=== PATIENT | female | born 2005 | race Caucasian/White ===

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

== ENCOUNTER 2024-11-04 12:15 | Emergency (ER) | payer OTHER, SELFPAY ==
--- NOTE | ~2024-11-04 | US_ITS ---
EXAMINATION: US OBSTETRICAL ULTRASOUND CLINICAL INFORMATION: , pain and bleeding. COMPARISON: None available. LMP: 07/29/2024. Gestational age by maternal dates is 14 weeks, 0 days. Estimated date of delivery by maternal dates is 05/05/2025. TECHNIQUE: Ultrasound of the maternal pelvis is performed using transabdominal and transvaginal transducers. Transvaginal imaging is performed due to inadequate visualization transabdominally. M-mode Doppler is also performed. FINDINGS: HCG = 36,264 There is a single intrauterine gestational sac with visible yolk sac, embryo/fetus, and cardiac activity. There is positive motion. There is no significant subchorionic hemorrhage or hematoma. No myometrial abnormalities. Cervical length = 3.7 cm. Placenta is anterior. HR: 170 beats per minute. CRL (crown rump length): 7.19 cm (13 weeks, 3 days +/- 4 days). CAMILLE (estimated date of delivery): 05/09/2025, +/- 4 days. MATERNAL ADNEXA: The right maternal ovary measures 3.0 x 2.2 x 2.3 cm. Dominant follicular cyst measuring 1.7 x 1.9 x 2.0 cm. The left maternal ovary measures 2.9 x 2.8 x 3.2 cm. Dominant follicular cyst measuring 2.6 x 2.0 x 2.4 cm. There is no significant maternal adnexal mass. Trace free pelvic fluid is present, anechoic, nonspecific. US/US OB pelvic and transvaginal IMPRESSION: 1. Single viable intrauterine gestation with ultrasound gestational age of 18 weeks, 3 days, +/- 4 days. 2. Estimated date of delivery is 05/09/2025, +/- 4 days. 3. No maternal adnexal mass or pelvic ascites. 4. No gestational complication identified. Electronically signed by: Del Potter MD 11/04/2024 03:33 PM EDT
[2024-11-04 12:32] VITALS: BP 119/64; PULSE 101; RESP 18; TEMP 36.9; O2SAT 97; BMI 38.4
--- NOTE | 2024-11-04 12:32 | ED.GENADULT ---
HPI - General Adult General Chief complaint: OB Stated complaint: 14 weeks preg bleeding Time Seen by Provider: 11/04/24 14:26 Source: patient Mode of arrival: ambulatory Limitations: no limitations History of Present Illness ED Provider: Valente Fishman DO HPI narrative: 19 year old female is G2A1 with prior miscarriage 1 year ago who is [place]-speaking from [place] visiting her sister for the past 10 days and has had a positive at home presents to the ED for 2 days of mild left-sided abdominal pain without other symptoms including fevers, chills, nausea, vomiting, diarrhea, constipation, vaginal bleeding or abnormal vaginal discharge. Patient denies any trauma to the area. History obtained with the assistance of patient's sister at bedside as well as in-person blender machine operator, Ray. Related Data Allergies Allergy/AdvReac Type Severity Reaction Status Date / Time No Known Allergies Allergy Verified 11/04/24 12:34 [No Known Allergies*] Review of Systems Review of Systems: Yes all other systems are reviewed and are negative PMFSH Past Medical History Medical History Patient denies significant medical history Social History Social History Smoked in Last 30 Days: No Use of substances other than those prescribed or required for medical reasons: No Advance Directives: No Advance Directives Information Provided: No Patient : Yes Physical Exam ED Vital Signs: Vital Signs - 24 hr 11/04/24 12:32 11/04/24 15:18 Temperature 98.4 F 97.3 F Pulse Rate 101 H 105 H Respiratory Rate 18 14 Blood Pressure 119/64 140/86 H Pulse Oximetry 97 92 Oxygen Delivery Method Room Air Room Air BMI result Body Mass Index 38.4 Constitutional: ?Alert, oriented, speaking in full sentences HEENT: ?Normocephalic, atraumatic. ? Eyes: ?PERRL, EOMI Neck: ?Supple, nontender Chest: ?No chest wall tenderness Respiratory: ?Lungs clear to auscultation, no increased work of breathing Cardio: ?Regular rate and rhythm, no murmur GI: ?Soft, gravid, nontender Back: ?Normal range of motion, nontender Skin: ?No rash, no lesions Neuro: ?Alert and oriented to person, place and time, moves all 4 extremities, no focal deficits Extremities: ?No swelling or tenderness, full range of motion Psych: ?Calm, alert and cooperative, appropriate behavior Course Course Course Narrative: RME, this is a rapid medical exam performed by Brooks Azul please refer to primary provider for complete H&P- 19-year-old female presents for evaluation of lower abdominal pain and vaginal bleeding. The patient reports she was about 14 weeks . She was . Patient reports a previous miscarriage. She states that she had an ultrasound in [place] on October 22 which confirmed intrauterine gestation. Plan for labs, pelvic ultrasound Medications Administered Discontinued Medications Generic Name Dose Route Start Last Admin Trade Name Freq PRN Reason Stop Dose Admin Acetaminophen 975 mg 11/04/24 15:32 11/04/24 15:42 Acetaminophen 325 Mg Tablet PO 11/04/24 15:33 975 mg ONCE ONE Administration Medical Decision Making Medical Decision Making [facility] Narrative: Pleasant 19-year-old female presenting with left-sided abdominal pain in the setting of known . Unremarkable CBC, unremarkable metabolic panel, unremarkable lipase and liver function, beta hCG over 36,000, no urinary symptoms, and she is O positive. She has no focal tenderness concerning for intra-abdominal pathology such as appendicitis or cholecystitis. Ultrasound performed which showed a single viable intrauterine at approximately 18 weeks. No other complicating features if normal movement and heart rate. The patient has no vaginal bleeding and there was no concern for loss at this time. She is well-appearing, accepts offered acetaminophen for pain and we discuss clear return precautions and follow up with her gynecological assistant when she returns home to [place] in a few days. Patient and sister at bedside agree with plan. Lab Data 11/04/24 12:53 11/04/24 12:53 Labs: Lab Results 11/04/24 Range/Units 12:53 WBC 11.7 H (4.8-10.8) X10*3/uL RBC 4.06 L (4.20-5.50) X10*6/uL Hgb 12.5 (12.0-16.0) g/dl Hct 35.1 L (37.0-47.0) % MCV 86.5 (80.0-98.0) fL MCH 30.8 (27.0-33.0) pg MCHC 35.6 H (31.0-35.0) g/dl RDW 13.4 (11.0-16.0) % Plt Count 265 (160-400) X10*3/uL MPV 10.0 (9.4-12.3) fL Immature Gran % (Auto) 0.3 (0.0-0.4) % Neut % (Auto) 82.4 H (45-73) % Lymph % (Auto) 9.2 L (20-40) % [place] % (Auto) 6.3 (2-11) % Eos % (Auto) 1.5 (0-4) % Baso % (Auto) 0.3 (0-2) % Lymph # (Auto) 1.1 L (1.2-4.9) X10*3/uL [place] # (Auto) 0.7 (0.1-1.2) X10*3/uL Eos # (Auto) 0.2 (0.0-0.4) X10*3/uL Baso # (Auto) 0.0 (0.0-0.2) X10*3/uL Abs Immat Gran (auto) 0.03 (0.00-0.03) X10*3/uL Absolute Neuts (auto) 9.7 H (2.0-8.3) x10*3/uL Absolute Nucleated RBC 0.000 (0.0-0.012) X10*3/uL Nucleated RBC % (auto) 0.0 (0.0-0.2) /100WBC Sodium 135 (135-145) mmol/L Potassium 3.7 (3.3-5.1) mmol/L Chloride 108 (96-108) mmol/L Carbon Dioxide 21 L (22-29) mmol/L Anion Gap 10 L (12-20) BUN 7 L (9-16) mg/dL Creatinine 0.62 (0.5-1.4) mg/dL Estim Creat Clear Calc 161.8 Estimated GFR > 60 Random Glucose 90 (60-115) mg/dL Calcium 9.3 (8.4-10.2) mg/dL Total Bilirubin 0.5 (0.0-1.0) mg/dL AST 15 (5-31) U/L ALT 8 (0-31) U/L Alkaline Phosphatase 61 (39-117) U/L Total Protein 7.7 (6.5-8.0) g/dL Albumin 3.7 (3.5-5.0) g/dL Lipase 15 (8-78) U/L Beta HCG, Quant 65453 mIU/mL Blood Type O Positive Discharge Plan Discharge Clinical Impression: Intrauterine Patient Disposition: Home, Self-Care Instructions: at 15 to 18 Weeks (ED), at 19 to 22 Weeks (ED) Additional Instructions: Por favor, emile un seguimiento con hampton ginec?logo obstetra cuando regrese a [place] para las pruebas de rutina. [place] ultrasonido de hoy mostr? un embarazo a las 18 semanas y aproximadamente 3 d?as con de 05/09/2025. Por favor, vuelva a urgencias si tiene sangrado vaginal, flujo anormal, s?ntomas urinarios, fiebre, empeoramiento del dolor abdominal o cualquier otro cambio spring o preocupaci?n. Traducci?n realizada con la versi?n gratuita del [email or web address] [email or web address] FINDINGS: HCG = 36,264 There is a single intrauterine gestational sac with visible yolk sac, embryo/fetus, and cardiac activity. There is positive motion. There is no significant subchorionic hemorrhage or hematoma. No myometrial abnormalities. Cervical length = 3.7 cm. Placenta is anterior. HR: 170 beats per minute. CRL (crown rump length): 7.19 cm (13 weeks, 3 days +/- 4 days). CAMILLE (estimated date of delivery): 05/09/2025, +/- 4 days. MATERNAL ADNEXA: The right maternal ovary measures 3.0 x 2.2 x 2.3 cm. Dominant follicular cyst measuring 1.7 x 1.9 x 2.0 cm. The left maternal ovary measures 2.9 x 2.8 x 3.2 cm. Dominant follicular cyst measuring 2.6 x 2.0 x 2.4 cm. There is no significant maternal adnexal mass. Trace free pelvic fluid is present, anechoic, nonspecific. US/US OB pelvic and transvaginal IMPRESSION: 1. Single viable intrauterine gestation with ultrasound gestational age of 18 weeks, 3 days, +/- 4 days. 2. Estimated date of delivery is 05/09/2025, +/- 4 days. 3. No maternal adnexal mass or pelvic ascites. 4. No gestational complication identified. Electronically signed by: Del Potter MD 11/04/2024 03:33 PM EDT RP Print Language: Singaporean
[2024-11-04 12:58] LABS: MANUAL DIFF FLAG NO
[2024-11-04 13:04] LABS: Basophils Percent Auto 0.3 % (0-2); Eosinophils Absolute Auto 0.2 X10*3/uL (0.0-0.4); Eosinophils Percent Auto 1.5 % (0-4); Hematocrit 35.1 % (37.0-47.0); Hemoglobin 12.5 g/dl (12.0-16.0); Imm Gran Abs Auto 0.03 X10*3/uL (0.00-0.03); Imm Gran Pct Auto 0.3 % (0.0-0.4); Lymphocytes Absolute Auto 1.1 X10*3/uL (1.2-4.9); Lymphocytes Percent Auto 9.2 % (20-40); Mean Corpuscular HGB Conc 35.6 g/dl (31.0-35.0); Mean Corpuscular Hemoglobin 30.8 pg (27.0-33.0); Mean Corpuscular Volume 86.5 fL (80.0-98.0); Monocytes Absolute Auto 0.7 X10*3/uL (0.1-1.2); Monocytes Percent Auto 6.3 % (2-11); Neutrophils Absolute Auto 9.7 x10*3/uL (2.0-8.3); Neutrophils Percent Auto 82.4 % (45-73); Platelet Count 265 X10*3/uL (160-400); Red Blood Count 4.06 X10*6/uL (4.20-5.50); Red Cell Distribution Width 13.4 % (11.0-16.0); White Blood Count 11.7 X10*3/uL (4.8-10.8)
[2024-11-04 13:19] LABS: Alanine Aminotransferase 8 U/L (0-31); Albumin Level 3.7 g/dL (3.5-5.0); Alkaline Phosphatase 61 U/L (39-117); Anion Gap 10 (12-20); Aspartate Amino Transferase 15 U/L (5-31); Bilirubin Total 0.5 mg/dL (0.0-1.0); Blood Urea Nitrogen 7 mg/dL (9-16); Calcium 9.3 mg/dL (8.4-10.2); Carbon Dioxide 21 mmol/L (22-29); Chloride 108 mmol/L (96-108); Creatinine Clr Calc Pharmacy 161.8; Estimated Glomerular Filt Rate > 60; Glucose Random 90 mg/dL (60-115); Lipase 15 U/L (8-78); Potassium 3.7 mmol/L (3.3-5.1); Sodium 135 mmol/L (135-145); Total Protein 7.7 g/dL (6.5-8.0)
[2024-11-04 13:45] LABS: HCG Quantitative 36264 mIU/mL
--- NOTE | 2024-11-04 14:27 | PC.NURSE ---
pt currently at ultrasound
--- NOTE | 2024-11-04 15:05 | PC.NURSE ---
pt rerturned from ultrasound department
[2024-11-04 15:18] VITALS: BP 140/86; PULSE 105; RESP 14; TEMP 36.3; O2SAT 92
[2024-11-04] MEDS: Acetaminophen 325 MG TABLET 975 MG PO (15:42)
[2024-11-04 16:33] VITALS: BP 120/68; PULSE 98; RESP 16; TEMP 36.9; O2SAT 99
== END 2024-11-04 16:37 | disposition home or self-care (01) ==
PROVIDERS: Physician Assistant; Emergency Provider Emergency Medicine
DX: O20.9 Hemorrhage in early pregnancy, unspecified (principal); R10.2 Pelvic and perineal pain; Z3A.14 14 weeks gestation of pregnancy; Z37.9 Outcome of delivery, unspecified; Z79.899 Other long term (current) drug therapy
CPT/HCPCS: 36415; 76801; 76817; 80053; 83690; 84702; 85025; 86900; 86901; 99284

== ENCOUNTER → 2024-11-04 12:33 | Outpatient (BNV) | payer OTHER, SELFPAY | PROVIDERS: Emergency Provider Emergency Medicine; Visit Provider Radiology Diagnostic Radiology | DX: R10.2 Pelvic and perineal pain (principal) | CPT/HCPCS: 76801; 76817 ==